=== PATIENT | male | born 1980 | race Native Hawaiian/Other Pacific Islander ===

== ENCOUNTER 2020-11-29 14:56 | Outpatient (CLI) | payer OTHER | END 2020-11-29 19:28 | disposition home or self-care (01) | LOC: RAD 14:56 | PROVIDERS: ATTEND Orthopaedic Surgery | DX: M25.551 Pain in right hip (principal) ==

== ENCOUNTER 2022-01-24 08:57 | Outpatient (CLI) | payer OTHER | END 2022-01-24 19:09 | disposition home or self-care (01) | LOC: MRI 08:57 | PROVIDERS: ATTEND Orthopaedic Surgery | DX: M25.851 Other specified joint disorders, right hip (principal) ==

== ENCOUNTER → 2022-06-25 | Outpatient (CLI) | payer OTHER | LOC: RAD 21:52 | PROVIDERS: ATTEND Orthopaedic Surgery | DX: M25.551 Pain in right hip (principal) ==

== ENCOUNTER 2022-08-28 15:26 | Outpatient (CLI) | payer OTHER | END 2022-08-28 19:03 | disposition home or self-care (01) | LOC: RAD 15:26 | PROVIDERS: ATTEND Orthopaedic Surgery | DX: M25.851 Other specified joint disorders, right hip (principal) ==